=== PATIENT | female | born 1985 | race Caucasian/White ===

== ENCOUNTER → 2016-07-19 | Outpatient (CLI) | payer OTHER ==
[2015-05-05 21:16] VITALS: BP 152/104
--- NOTE | 2016-07-19 12:34 | RAD ---
Exam performed: Right breast ultrasound. History: Clear discharge for one year. Date of service: 07/19/16. Comparison: None available Discussion: Sonographic evaluation of the right breast is less performed and images are obtained. Normal fibroglandular densities are seen. No solid or cystic mass lesions are identified. Scanning of the right axilla demonstrates no abnormal lymphadenopathy. Impression: No definite sonographic abnormality seen in the right breast. Patient may be followed up clinically. BI-RADS 1. Negative exam.
== END | disposition home or self-care (01) ==
LOC: KCIC US 10:41
PROVIDERS: ATTEND Obstetrics & Gynecology
DX: N64.4 Mastodynia (principal)
CPT/HCPCS: 76641

== ENCOUNTER 2016-09-20 09:32 | Emergency (ER) | payer OTHER ==
[2016-09-20] MEDS ORDERED: IV NORMAL SALINE 1000ML BAG 1,000 ML IV ONE (10:15)
[2016-09-20 10:28] LABS: BILIRUBIN,URINE NEGATIVE (NEG); GLUCOSE,URINE NEGATIVE (NEG); NITRITE,URINE NEGATIVE (NEG); PROTEIN,URINE NEGATIVE (NEG-TRACE); UROBILINOGEN,URINE 0.2 mg/dL (0.2 mg/dL)
[2016-09-20] MEDS ORDERED: FAMOTIDINE 20 MG/2 ML VIAL IVP ONE (10:30)
[2016-09-20] MEDS ORDERED: MORPHINE SULFATE 10 MG/ML VIAL. IV ONE (10:30)
[2016-09-20] MEDS ORDERED: ONDANSETRON PF 4 MG/2 ML VIAL. IV ONE (10:30)
[2016-09-20 10:35] LABS: CALCIUM 9.2 mg/dL (8.5-10.1); CREATININE 0.7 mg/dL (0.6-1.0); GFR 98.3; POTASSIUM 3.4 mmol/L (3.5-5.1)
[2016-09-20 10:40] LABS: ALBUMIN 3.6 g/dL (3.4-5.0); ALBUMIN/GLOBULIN RATIO 0.9 (1.0-1.7); TOTAL BILIRUBIN 0.4 mg/dL (0.2-1.0); TOTAL PROTEIN 7.8 g/dL (6.4-8.2)
[2016-09-20 10:44] LABS: BASO % 0 % (0-3); EOS % 2 % (0-3); HEMATOCRIT 40.3 % (36.0-47.0); LYMPH # 2.8 x10^3/uL (1.0-4.8); LYMPH % 31 % (24-48); MEAN CORPUSCULAR HEMOGLOBIN 30 pg (25-35); MEAN CORPUSCULAR HGB CONC 35 g/dL (31-37); MEAN CORPUSCULAR VOLUME 87 fL (79-100); MONO % 6 % (0-9); NEUT % 61 % (31-73); PLATELET COUNT 259 x10^3/uL (140-400); RED BLOOD COUNT 4.64 x10^6/uL (3.50-5.40); WHITE BLOOD COUNT 8.9 x10^3/uL (4.0-11.0)
[2016-09-20 10:50] LABS: BACTERIA,URINE FEW /HPF (0-FEW); RBC,URINE 0 /HPF (0-2); SQUAMOUS EPITHELIAL CELL,UR MANY /LPF; WBC,URINE 0 /HPF (0-4)
[2016-09-20] MEDS ORDERED: IOHEXOL 240 MG/ML 50ML VIAL. PO ONE (11:15)
[2016-09-20] MEDS ORDERED: IOHEXOL 300 MG/ML 75 ML VIAL IV ONE (11:15)
[2016-09-20 13:00] VITALS: BP 148/69
--- NOTE | 2016-09-20 13:02 | RAD ---
CT of the abdomen and pelvis with contrast, 09/20/2016: History: Abdominal pain, IBS Multidetector CT imaging was performed following an IV bolus injection of iodinated contrast material. No oral contrast material was administered for this study. The gallbladder is surgically absent. There is no evidence of a hepatic mass. The pancreas is unremarkable. The spleen is of normal size. There is a 3 cm low-density lesion arising from the lower pole of the left kidney. It demonstrates a CT number of 38 Hounsfield units which is higher than that of a simple cyst. Streak artifacts related to patient size may be contributing to this higher than normal number. A previous ultrasound study from 05/25/2016 did demonstrate a cyst in this region. There is an additional very tiny cortical low density lesion in the anterior aspect of the lower pole which is too small to characterize but is probably a cyst. The right kidney is unremarkable. The abdominal aorta is unremarkable. No abdominal or pelvic adenopathy is seen. The uterus is surgically absent. There is a 3.8 cm low-density mass in the upper pelvis on the left. This probably arises from the left ovary. A structure which appears to represent the right ovary lies at a similar level on the right pelvis. This low-density mass cannot be clearly from the adjacent sigmoid colon. Its internal CT number is 45 Hounsfield units suggesting complicated fluid. The bowel loops are not dilated. The appendix is visualized and shows no abnormality. There is no evidence of underlying diverticulosis in the sigmoid colon. No free fluid or free air is evident in the abdomen or pelvis. IMPRESSION: 1. Low density left pelvic mass which is probably an ovarian cyst. Other possibilities such as an endometrioma, cystic neoplasm or abscess are much less likely. Sonographic follow-up is suggested to confirm that this is a benign process. 2. Left renal cysts. PQRS Compliance Statement: One or more of the following individualized dose reduction techniques were utilized for this examination: 1. Automated exposure control 2. Adjustment of the mA and/or kV according to patient size 3. Use of iterative reconstruction technique
[2016-09-20] MEDS ORDERED: ACET-704 PO (14:09)
--- NOTE | 2016-09-20 14:09 | PHYS DOC ---
Past Medical History Past Medical History: No Pertinent History Past Surgical History: Cholecystectomy, Other Additional Past Surgical Histo: UTERUS REMOVED Alcohol Use: None Drug Use: None Adult General Chief Complaint Chief Complaint: ABDOMINAL PAIN HPI HPI Patient is a 31 year old female with history of colitis who presents today with left lower quadrant abdominal pain that began yesterday. Patient states she is nauseated. Denies any vomiting. Denies any diarrhea. Review of Systems Review of Systems Constitutional: Denies fever or chills [] Eyes: Denies change in visual acuity, redness, or eye pain [] HENT: Denies nasal congestion or sore throat [] Respiratory: Denies cough or shortness of breath [] Cardiovascular: No additional information not addressed in HPI [] GI: Left low quadrant abdominal pain : Denies dysuria or hematuria [] Musculoskeletal: Denies back pain or joint pain [] Integument: Denies rash or skin lesions [] Neurologic: Denies headache, focal weakness or sensory changes [] Endocrine: Denies polyuria or polydipsia [] Current Medications Current Medications Current Medications Medications (Trade) Dose Ordered Sig/Johnathon Start Time Stop Time Status Last Admin Dose Admin Famotidine (Pepcid) 20 mg 1X ONCE 09/20/16 10:30 09/20/16 10:31 DC 09/20/16 10:35 20 MG Iohexol (Omnipaque 240 Mg/ml) 30 ml 1X ONCE 09/20/16 11:15 09/20/16 11:16 DC Iohexol (Omnipaque 300 Mg/ml) 75 ml 1X ONCE 09/20/16 11:15 09/20/16 11:16 DC 09/20/16 12:18 75 ML Morphine Sulfate 5 mg 1X ONCE 09/20/16 10:30 09/20/16 10:31 DC 09/20/16 10:34 5 MG Ondansetron HCl (Zofran) 4 mg 1X ONCE 09/20/16 10:30 09/20/16 10:31 DC 09/20/16 10:34 4 MG Sodium Chloride (Iv Sodium Chloride 0.9% 1000ml Bag) 1,000 ml @ 1,000 mls/hr 1X ONCE 09/20/16 10:15 09/20/16 11:14 DC 09/20/16 10:34 1,000 MLS/HR Allergies Allergies Allergies Coded Allergies Type Severity Reaction Last Updated Verified Penicillins Allergy Intermediate 05/05/15 Yes Physical Exam Physical Exam Constitutional: Well developed, well nourished, no acute distress, non-toxic appearance. [] HENT: Normocephalic, atraumatic, bilateral external ears normal, oropharynx moist, no oral exudates, nose normal. [] Eyes: PERRLA, EOMI, conjunctiva normal, no discharge. [] Neck: Normal range of motion, no tenderness, supple, no stridor. [] Cardiovascular:Heart rate regular rhythm, no murmur [] Lungs & Thorax: Bilateral breath sounds clear to auscultation [] Abdomen: Rounded abdomen, slight tenderness on palpation of the left lower quadrant, no tenderness on the right upper quadrant or right lower quadrant. Bowel sounds normal, soft, no masses, no pulsatile masses. [] Skin: Warm, dry, no erythema, no rash. [] Back: No tenderness, no CVA tenderness. [] Extremities: No tenderness, no cyanosis, no clubbing, ROM intact, no edema. [] Neurologic: Alert and oriented X 3, normal motor function, normal sensory function, no focal deficits noted. [] Psychologic: Affect normal, judgement normal, mood normal. [] Current Patient Data Vital Signs Vital Signs Date Time Temp Pulse Resp B/P Pulse Ox O2 Delivery O2 Flow Rate FiO2 09/20/16 13:00 74 18 148/69 98 Room Air 09/20/16 10:07 98.1 98.1 Lab Values Laboratory Tests Test 09/20/16 10:15 White Blood Count 8.9x10^3/uL (4.0-11.0) Red Blood Count 4.64x10^6/uL (3.50-5.40) Hemoglobin 14.0g/dL (12.0-15.5) Hematocrit 40.3% (36.0-47.0) Mean Corpuscular Volume 87fL (79-100) Mean Corpuscular Hemoglobin 30pg (25-35) Mean Corpuscular Hemoglobin Concent 35g/dL (31-37) Red Cell Distribution Width 13.0% (11.5-14.5) Platelet Count 259x10^3/uL (140-400) Neutrophils (%) (Auto) 61% (31-73) Lymphocytes (%) (Auto) 31% (24-48) Monocytes (%) (Auto) 6% (0-9) Eosinophils (%) (Auto) 2% (0-3) Basophils (%) (Auto) 0% (0-3) Neutrophils # (Auto) 5.4x10^3uL (1.8-7.7) Lymphocytes # (Auto) 2.8x10^3/uL (1.0-4.8) Monocytes # (Auto) 0.5x10^3/uL (0.0-1.1) Eosinophils # (Auto) 0.2x10^3/uL (0.0-0.7) Basophils # (Auto) 0.0x10^3/uL (0.0-0.2) Urine Collection Type Unknown Urine Color Yellow Urine Clarity Clear Urine pH 7.0 Urine Specific [place] 1.015 Urine Protein Negativemg/dL (NEG-TRACE) Urine Glucose (UA) Negativemg/dL (NEG) Urine Ketones (Stick) Negativemg/dL (NEG) Urine Blood Negative (NEG) Urine Nitrite Negative (NEG) Urine Bilirubin Negative (NEG) Urine Urobilinogen Dipstick 0.2mg/dL (0.2 mg/dL) Urine Leukocyte Esterase Negative (NEG) Urine RBC 0/HPF (0-2) Urine WBC 0/HPF (0-4) Urine Squamous Epithelial Cells Many/LPF Urine Bacteria Few/HPF (0-FEW) Sodium Level 137mmol/L (136-145) Potassium Level 3.4mmol/L (3.5-5.1) L Chloride Level 102mmol/L (98-107) Carbon Dioxide Level 29mmol/L (21-32) Anion Gap 6 (6-14) Blood Urea Nitrogen 11mg/dL (7-20) Creatinine 0.7mg/dL (0.6-1.0) Estimated GFR (Cockcroft-Gault) 98.3 BUN/Creatinine Ratio 16 (6-20) Glucose Level 91mg/dL (70-99) Calcium Level 9.2mg/dL (8.5-10.1) Total Bilirubin 0.4mg/dL (0.2-1.0) Aspartate Amino Transferase (AST) 17U/L (15-37) Alanine Aminotransferase (ALT) 36U/L (14-59) Alkaline Phosphatase 45U/L (46-116) L Total Protein 7.8g/dL (6.4-8.2) Albumin 3.6g/dL (3.4-5.0) Albumin/Globulin Ratio 0.9 (1.0-1.7) L Lipase 67U/L (73-393) L Laboratory Tests 09/20/16 10:15 Laboratory Tests 09/20/16 10:15 EKG EKG [] Radiology/Procedures Radiology/Procedures [] Course & Med Decision Making Course & Med Decision Making Pertinent Labs and Imaging studies reviewed. (See chart for details) Patient with history of colitis who presents today with left lower quadrant abdominal pain that began yesterday. Labs are negative. CT of the abdomen and pelvic is noted for left ovarian cyst. Recommended she follows up with an OB/ [facility] for this. Discharged with Tylenol 3. Dragon Disclaimer Dragon Disclaimer This electronic medical record was generated, in whole or in part, using a voice recognition dictation system. Departure Departure Impression: Primary Impression: Abdominal pain, left lower quadrant Additional Impression: Left ovarian cyst Disposition: HOME, SELF-CARE Condition: STABLE Referrals: SAUMYA DUFF (PCP) Follow-up with your doctor in the course of the week Patient Instructions: Abdominal Pain Additional Instructions: You were seen for abdominal pain. Your CT scan showed you have an ovarian cyst. Follow-up with your [facility] for this. Continue taking the rest of the medicines as ordered by your doctor. Scripts Acetaminophen With Codeine (Tylenol With Codeine #3 Tablet)1 Each Tablet1 Tab PO PRN Q6HRS PRN PAIN #30 TAB Prov:WANDA OBRIEN APRN 09/20/16 Problem Qualifiers WANDA OBRIEN APRN September 20, 2016 14:09
== END 2016-09-20 14:18 | disposition home or self-care (01) ==
LOC: ER 09:32
DX: N83.202 Unspecified ovarian cyst, left side (principal); K58.9 Irritable bowel syndrome, unspecified; Z90.49 Acquired absence of other specified parts of digestive tract; Z90.721 Acquired absence of ovaries, unilateral; Z88.0 Allergy status to penicillin
CPT/HCPCS: 36415; 74177; 80053; 81001; 83690; 85027; 96361; 96374; 96375; 99285; J2270; J2405; J7030; Q9967; S0028